=== PATIENT | male | born 2005 | race Caucasian/White ===

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

== ENCOUNTER 2025-11-09 18:35 | Observation (INO) ==
[2025-11-09] MEDS: SODIUM CHLORIDE 0.9% 1,000 ML IV ONE ×2 (18:57→22:59)
[2025-11-09 19:08] LABS: Hematocrit (blood only) 45.8 % (42.0-52.0); Hemoglobin 16.6 g/dL (14.0-18.0); Immature Granulocytes # (auto) 0.03 K/uL (0.01-0.20); Immature Granulocytes % (auto) 0.4 %; Mean Corpuscular Hemoglobin 30.3 pg (25.0-34.0); Mean Corpuscular Volume 83.6 fL (80.0-100.0); Platelet Count 204 K/uL (130-400); RDW Standard Deviation 40.0 fL (36.4-46.3); Red Blood Count 5.48 M/uL (4.70-6.10); White Blood Count 8.28 K/ul (4.8-10.8)
[2025-11-09 19:25] LABS: Alanine Aminotransferase 23.0 U/L (7-52); Albumin Globulin Ratio 1.1 (0.9-2); Albumin Level 4.8 gm/dl (3.4-5.0); Alkaline Phosphatase 78.0 U/L (34-104); Anion Gap 11.0 (3-11); Bilirubin,Total 0.9 mg/dl (0.2-1.0); Blood Urea Nitrogen 17.0 mg/dl (6-23); Calcium 9.8 mg/dl (8.6-10.3); Carbon Dioxide 23.0 mmol/L (21-32); Chloride 101.0 mmol/L (98-107); Creatinine Clr Calc Pharmacy 149.1 ml/min; Globulin 4.3 gm/dl (2.5-4.0); Glucose 91.0 mg/dl (70-99(Fasting)); Potassium 3.8 mmol/L (3.5-5.1); Sodium 135.0 mmol/L (136-145); Total Protein 9.1 gm/dl (6.0-8.3)
--- NOTE | 2025-11-09 20:17 | Emergency Department Note ---
Impression & Plan SOB (shortness of breath), Influenza A, Tachycardia ED Provider Note CHIEF COMPLAINT: Shortness of breath, dehydration HISTORY OF PRESENTING ILLNESS: This 20-year-old male patient presents to the emergency department with his sister for evaluation of shortness of breath, wheezing, and dehydration. The patient was seen in the ER and tested positive for influenza A earlier this morning. However, he states that his breathing has gotten worse and he is unable to stay hydrated. The patient has a history of asthma and has required admission in the past with illness. The patient states that he has been using his Pulmicort and albuterol without improvement of his symptoms at home. He did take Tylenol 4 hours ago, but still feels very sweaty. The patient denies any chest pain or abdominal pain, but does have nausea along with the shortness of breath. He has not been able to eat or drink much of anything today because of the nausea. He denies any fever currently, but feels like he has sweats and chills. REVIEW OF SYSTEMS: See HPI for pertinent positives and pertinent negatives. ALLERGIES: Bactrim MEDICATIONS: Pulmicort, albuterol PAST MEDICAL HISTORY: Asthma PHYSICAL EXAM: Vital Signs: Vitals are noted on the nurse's note and reviewed by myself. GENERAL: The patient appears ill, but nontoxic. SKIN: Capillary reflex less than 2 seconds. HEAD: Normocephalic, atraumatic. EYES: Pupils equal round and reactive to light and accommodation. Conjunctivae without injection, sclerae without icterus. Extraocular movements intact. NOSE: Patent, turbinates inflamed with no discharge. No sinus tenderness. MOUTH: Mucous membranes mildly dry. Airway patent, uvula midline. Pharynx is not erythematous and not edematous without exudate. Pharynx without postnasal drip. No evidence for peritonsillar abscess. NECK: Supple without nuchal rigidity. Mild anterior cervical lymphadenopathy. HEART: Tachycardic without murmurs gallops or rubs. LUNGS: Decreased air exchange bilaterally with scattered wheezes, but no obvious rales or rhonchi. The patient does have accessory muscle use, but no retractions. ABDOMEN: Positive bowel sounds x 4. Normal tympanic percussion. Soft, nontender to palpation. No masses or hepatosplenomegaly. No guarding, rigidity, or rebound tenderness. No CVA tenderness. No focal RLQ or LLQ tenderness. NEURO: Patient was alert and oriented. DIFFERENTIAL DIAGNOSIS: Differential diagnosis includes URI, bronchitis, pneumonia, pneumothorax, hemothorax, PE, ND, pericarditis, myocarditis, airway obstruction, aspiration, pulmonary edema, asthma, COPD, CHF, pleurisy, metabolic acidosis, anemia, neoplasm, or others. ED COURSE AND MEDICAL DECISION MAKING: HISTORY FROM INDEPENDENT HISTORIAN: Additional history obtained from the patient's sister MEDICATIONS GIVEN: 2 L normal saline solution bolus. Solu-Medrol 125 mg IV. Magnesium 1 g IV. DuoNeb treatment. Toradol 10 mg IV and Tylenol 1000 mg IV. An hour-long DuoNeb was ordered, but the patient was unable to tolerate the entire treatment due to worsening tachycardia. Zofran 4 mg IV and Pepcid 20 mg IV. Tamiflu 75 mg p.o. MONITOR: Continuous equipment monitor phototypesetting: Order was placed for continuous equipment monitor phototypesetting. Patient was placed on the equipment monitor phototypesetting and continuous pulse ox. Patient was noted to be in sinus tachycardia at an initial rate of 120 bpm per my interpretation. EKG: EKG was interpreted by myself as sinus tachycardia at 125 bpm with no acute ST or T wave changes. INTERPRETATION OF LABS: I interpreted the labs with full lab results as below in the lab section of this note. Laboratory results pertinent to the emergent complaint are discussed in the MDM section below. The patient was advised to follow up with their PCP and/or specialist(s) for further outpatient monitoring and management of any abnormal results. INTERPRETATION OF IMAGING: Imaging studies were interpreted by myself and read by radiology as per the imaging section of this note. The patient was advised to follow up with their PCP and/or specialist(s) for further outpatient management of any non-emergent abnormal findings. Chest x-ray negative for acute cardiopulmonary etiology. CTA of the chest with IV contrast shows no definite PE or pneumonia. There is nonspecific hilar and subcarinal lymphadenopathy. Moderate artifact limits evaluation. CHRONIC MEDICAL/SOCIAL CONDITIONS AFFECTING CARE: Asthma CONSULTATIONS: On-call hospitalist MDM SUMMARY: The patient was seen during a time of extreme volume and extreme acuity. Nursing triage protocols were initiated with IV lock, labs, and/or imaging studies conducted by protocol in the triage area. The patient was initially evaluated in a sub-waiting room and then re-evaluated once they were taken back to an exam room. The patient has been sick for the past 2 days and was diagnosed with influenza A this morning. The patient was given prednisone 60 mg p.o. as well as a DuoNeb treatment prior to discharge. The patient has been using his Pulmicort and albuterol at home as well. However, he continues with worsening shortness of breath and trouble breathing. The patient states that he has a history of asthma that can result in significant exacerbation with illness and previous hospitalizations. On exam the patient was tachycardic with pulse ox in the low 90s. He did have decreased air movement bilaterally with wheezing. The patient was given a DuoNeb treatment with some improvement of his lung sounds, but persisting symptoms. The patient was also given a total of 2 L normal saline solution bolus, Solu-Medrol 125 mg IV, and magnesium 1 g IV. The patient was ordered an hour-long DuoNeb treatment, but the patient was unable to tolerate the entire treatment as his heart rate went into the 150s and 160s. The patient was given Toradol 10 mg IV and Tylenol 1000 mg IV for his discomfort and bodyaches. The patient was given IV Zofran and IV Pepcid for his nausea. The patient was also given a dose of oral Tamiflu. White blood cell count normal at 8.28. Hemoglobin normal at 16.6. Platelet count normal 204. VBG with a pCO2 of 31, but otherwise normal. Sodium 135, but otherwise without concerning abnormalities. Magnesium normal. High-sensitivity troponin normal. Chest x-ray negative for acute cardiopulmonary etiology. Due to the patient's persisting tachycardia and shortness of breath, CTA of the chest was obtained. CTA of the chest with IV contrast shows no definite PE or pneumonia. There is nonspecific hilar and subcarinal lymphadenopathy. Moderate artifact limits evaluation. Despite the above treatment, the patient's pulse ox remained around 90 to 91% on room air and he remained tachycardic between 110 and 130's. The patient also continued feeling short of breath. The patient was placed on 2 L of oxygen by nasal cannula. The patient does not feel like he can manage his symptoms at home and states that his symptoms feel similar to when he has required admission in the past. I spoke with the on-call hospitalist who agreed to admit the patient for further evaluation and treatment. Please refer to their dictation for further details. The patient's care was transferred in stable condition. DIAGNOSIS: Shortness of breath Tachycardia Influenza A Past Med/Surg History Problem List (Updated 11/10/25 @ 00:28 by Jacklyn Gonzalez PA-C) Hyponatremia Tachycardia (Acute) SOB (shortness of breath) (Acute) Influenza A (Acute) E-cigarette or vaping product use associated lung injury (EVALI) (Acute) Adames's palsy (Acute) Medical History Hypoxia Dyspnea No significant medical problems Surgical History No pertinent past surgical history Family History Mother Diabetes Father Diabetes Social History Smoking Status: Current every day smoker Tobacco Type: Cigarettes and E-cigarettes / Vaping Second Hand Exposure: Yes; Do You Dip or Chew Tobacco: No; Hx Alcohol Use: No Hx Substance Use: No Preferred Language: Stateless Communication Ability: Effective Visual Impairment: No Limitations Hearing Ability: Normal Neurosurgical Nurse Required: No Beliefs That Will Affect Care: None marital status: Single Current Living Situation: Family Current Living Situation Comment: lives with dad, sees mom once in a while. Feels Safe at Home: Yes Childhood Exposure to Second-Hand Smoke: Yes (father smokes) Dental Care, Regularly: Yes Seatbelt Use: always Assistive Devices: None Allergies Allergies Allergy/AdvReac Type Severity Reaction Status Date / Time Sulfa (Sulfonamide Allergy Intermediate HIVES,SWELL Verified 11/10/25 00:26 Antibiotics) ING Home Meds Previous Rx's Medication Instructions Recorded albuterol sulfate 90 mcg/actuation 2 inh inhalation Q4H PRN shortness 11/09/25 aerosol inhaler of breath or wheezing #6.7 grams Results & Data (ED) Vital Signs Vital Signs - 24 hr 11/09/25 18:39 11/09/25 21:05 11/09/25 21:05 Temperature 37 C Temperature Source Oral Pulse Rate 139 H Pulse Rate [Right Finger] 125 H Pulse Rhythm [Right Finger] Regular Pulse Strength [Right Finger] Normal Respiratory Rate 22 16 Respiratory Effort / Characteristics Non-Labored Respiratory Depth Normal Respiratory Pattern Regular Blood Pressure 162/71 H Blood Pressure [Right Arm] 122/78 Blood Pressure Mean 101 Blood Pressure Mean [Right Arm] 92 Blood Pressure Position [Right Arm] Lying Pulse Oximetry 93 99 99 Oxygen Delivery Method Room Air Room Air Room Air Oxygen Flow Rate Sepsis Recent Fever Within 48 Hours No Sepsis New/Unexplained Change in Mental Status No Sepsis Action Taken by Nursing No Action Required Oxygen Flow Rate - Titration Pulse Oximetry Post Tiitration 11/09/25 21:37 11/09/25 22:58 11/09/25 23:04 Temperature Temperature Source Pulse Rate 119 H 151 H Pulse Rate [Right Finger] 138 H Pulse Rhythm [Right Finger] Regular Pulse Strength [Right Finger] Normal Respiratory Rate 13 Respiratory Effort / Characteristics Non-Labored Respiratory Depth Normal Respiratory Pattern Regular Blood Pressure Blood Pressure [Right Arm] 107/75 Blood Pressure Mean Blood Pressure Mean [Right Arm] 85 Blood Pressure Position [Right Arm] Lying Pulse Oximetry 93 Oxygen Delivery Method Room Air Oxygen Flow Rate Sepsis Recent Fever Within 48 Hours Sepsis New/Unexplained Change in Mental Status Sepsis Action Taken by Nursing Oxygen Flow Rate - Titration Pulse Oximetry Post Tiitration 11/10/25 00:05 11/10/25 00:08 Temperature Temperature Source Pulse Rate Pulse Rate [Right Finger] 114 H Pulse Rhythm [Right Finger] Regular Pulse Strength [Right Finger] Normal Respiratory Rate 21 Respiratory Effort / Characteristics Non-Labored Respiratory Depth Normal Respiratory Pattern Regular Blood Pressure Blood Pressure [Right Arm] 100/74 Blood Pressure Mean Blood Pressure Mean [Right Arm] 82 Blood Pressure Position [Right Arm] Lying Pulse Oximetry 90 90 Oxygen Delivery Method Room Air Room Air Nasal Cannula Oxygen Flow Rate 0 Sepsis Recent Fever Within 48 Hours Sepsis New/Unexplained Change in Mental Status Sepsis Action Taken by Nursing Oxygen Flow Rate - Titration 2 Pulse Oximetry Post Tiitration 94 Laboratory Data 11/09/25 18:55 11/09/25 18:55 Lab Results 11/09/25 11/09/25 Range/Units 18:55 21:55 WBC 8.28 (4.8-10.8) K/ul RBC 5.48 (4.70-6.10) M/uL Hgb 16.6 (14.0-18.0) g/dL Hct 45.8 (42.0-52.0) % MCV 83.6 (80.0-100.0) fL MCH 30.3 (25.0-34.0) pg MCHC 36.2 H (32.0-36.0) g/dL RDW Std Deviation 40.0 (36.4-46.3) fL RDW Coeff of Oz 13.1 (11.5-14.5) % Plt Count 204 (130-400) K/uL MPV 10.9 (9.4-12.4) fL Immature Gran % (Auto) 0.4 % Neut % (Auto) 82.5 % Lymph % (Auto) 5.7 % [place] % (Auto) 11.1 % Eos % (Auto) 0.1 % Baso % (Auto) 0.2 % Neut # (Auto) 6.83 H (1.40-6.50) K/uL Lymph # (Auto) 0.47 L (1.20-3.40) K/uL [place] # (Auto) 0.92 H (0.11-0.59) K/uL Eos # (Auto) 0.01 (0.00-0.50) K/uL Baso # (Auto) 0.02 (0.00-0.20) K/uL Immature Gran # (Auto) 0.03 (0.01-0.20) K/uL VBG pH 7.41 (7.36-7.41) VBG pCO2 31 L (38-50) mmHg VBG pO2 49 mmHg VBG HCO3 20 mmol/L VBG O2 Saturation 84.9 % VBG Base Excess -4.0 mEq/L Sodium 135 L (136-145) mmol/L Potassium 3.8 (3.5-5.1) mmol/L Chloride 101 (98-107) mmol/L Carbon Dioxide 23 (21-32) mmol/L Anion Gap 11 (3-11) BUN 17 (6-23) mg/dl Creatinine 0.91 (0.6-1.4) mg/dl Est Cr Clr Drug Dosing 149.1 ml/min eGFR 123.74 BUN/Creatinine Ratio 18.7 (10-20) Glucose 91 (70-99(Fasting)) mg/dl Calcium 9.8 (8.6-10.3) mg/dl Magnesium 1.9 (1.7-2.4) mg/dl Total Bilirubin 0.9 (0.2-1.0) mg/dl AST 29 (13-39) U/L ALT 23 (7-52) U/L Alkaline Phosphatase 78 (34-104) U/L Troponin I High Sens 6.2 (0-20) pg/ml Total Protein 9.1 H (6.0-8.3) gm/dl Albumin 4.8 (3.4-5.0) gm/dl Globulin 4.3 H (2.5-4.0) gm/dl Albumin/Globulin Ratio 1.1 (0.9-2) Administered Medications Discontinued Medications Albuterol (Albut/Ipratrop 3mg/0.5mg Neb 3 Ml Vial) 3 ml NEB NOW STA; Protocol Stop: 11/09/25 20:43 Last Admin: 11/09/25 20:55 Dose: 3 ml Documented By: DEVENDRA Albuterol (Albut/Ipratrop 3mg/0.5mg Neb 3 Ml Vial) 12 ml NEB ONE ONE; Protocol Stop: 11/09/25 21:44 Last Admin: 11/09/25 22:20 Dose: 12 ml Documented By: DEVENDRA Sodium Chloride (Nss) 1,000 mls @ 999 mls/hr IV .Q1H1M ONE Stop: 11/09/25 19:43 Last Infusion: 11/09/25 21:43 Dose: Infused Documented By: Admin: 11/09/25 18:57 Dose: 999 mls/hr Documented By: [facility] Magnesium Sulfate/Dextrose (Magnesium Sulfate / D5w) 1 gm in 100 mls @ 100 mls/hr IV NOW STA Stop: 11/09/25 21:41 Last Infusion: 11/09/25 21:56 Dose: Infused Documented By: Admin: 11/09/25 20:55 Dose: 100 mls/hr Documented By: DEVENDRA Sodium Chloride (Nss) 1,000 mls @ 999 mls/hr IV .Q1H1M ONE Stop: 11/09/25 23:55 Last Infusion: 11/10/25 00:02 Dose: Infused Documented By: Admin: 11/09/25 22:59 Dose: 999 mls/hr Documented By: DEVENDRA Acetaminophen (Ofirmev) 1,000 mg in 100 mls @ 400 mls/hr IV NOW STA Stop: 11/09/25 23:09 Last Infusion: 11/09/25 23:13 Dose: Infused Documented By: Admin: 11/09/25 22:58 Dose: 400 mls/hr Documented By: DEVENDRA Famotidine (Pepcid 20mg Iv Push) 20 mg in 5 mls @ 2.5 mls/min IV NOW STA Stop: 11/09/25 23:19 Last Admin: 11/09/25 23:30 Dose: 2.5 mls/min Documented By: DEVENDRA Ioversol (Optiray 320 125ml) 115 ml IV ONCE ONE Stop: 11/09/25 22:09 Last Admin: 11/09/25 22:08 Dose: 115 ml Documented By: TATA Ketorolac Tromethamine (Ketorolac Tromethamine 15 Mg/Ml Vial) 10 mg IV NOW ONE Stop: 11/09/25 20:43 Last Admin: 11/09/25 20:55 Dose: 10 mg Documented By: DEVENDRA Methylprednisolone (Methylprednisolone 125 Mg/2 Ml Vial) 125 mg IV NOW STA Stop: 11/09/25 20:43 Last Admin: 11/09/25 20:55 Dose: 125 mg Documented By: DEVENDRA Ondansetron HCl (Ondansetron Inj 2 Mg/Ml 2 Ml Vial) 4 mg IV NOW STA Stop: 11/09/25 23:19 Last Admin: 11/09/25 23:30 Dose: 4 mg Documented By: DEVENDRA Oseltamivir Phosphate (Oseltamivir Phosphate 75 Mg Cap) 75 mg PO NOW STA Stop: 11/09/25 23:19 Last Admin: 11/09/25 23:29 Dose: 75 mg Documented By: DEVENDRA Imaging Data Radiologist's Impression: Chest X-Ray 11/09/25 19:41 Exam(s): XR CXR 2 VIEWS EXAM: XR Chest, 2 Views CLINICAL HISTORY: Reason for exam: Sob. TECHNIQUE: Frontal and lateral views of the chest. COMPARISON: 11/09/2025 FINDINGS: Lungs: No consolidation. No overt edema. Pleural space: No pleural effusion. No pneumothorax. Heart: Unremarkable. No cardiomegaly. Bones/joints: Unremarkable. No fracture or malalignment. IMPRESSION: No acute cardiopulmonary abnormality. Electronically signed by: Erick Chisholm MD 11/09/25 20:33 PM Chest CTA 11/09/25 21:43 Exam(s): CTA CHEST IV Amt: 115 ml optiray 320 EXAM: CT Angiography Chest With Intravenous Contrast CLINICAL HISTORY: Reason for exam: PE. TECHNIQUE: Axial computed tomographic angiography images of the chest with intravenous contrast. CTDI is 26.51 mGy and DLP is 913.85 mGy-cm. Automated exposure control was utilized for the study. A dose lowering technique was utilized adhering to the principles of ALARA. 115 mL Optiray 320 given IV, with excellent pulmonary arterial enhancement, though moderate contrast streak and breathing motion limits detail. MIP reconstructed images were created and reviewed. COMPARISON: Chest x-ray, same day. FINDINGS: Pulmonary arteries: No definite pulmonary embolism, artifact limits evaluation. Aorta: No aneurysm. Lungs: Grossly clear. No consolidation. Pleural space: No significant effusion. No pneumothorax. Heart: No cardiomegaly. No significant pericardial effusion. No evidence of elevated right heart pressures. Bones/joints: No acute fracture. Soft tissues: Unremarkable. Lymph nodes: Mildly prominent bilateral hilar and subcarinal lymph nodes. IMPRESSION: 1. No definite pulmonary embolism, artifact limits evaluation. 2. Lungs are clear. 3. Nonspecific hilar and subcarinal lymphadenopathy. 4. Moderate artifact limits evaluation. Electronically signed by: Estella Leung M.D. 11/09/25 23:25 PM Discharge Plan Visit Data Chief Complaint: Respiratory Problems Stated Complaint: SOB, LUNG PAIN, CANT STAY HYDRATED ED Provider: Forest Alonso ED Midlevel Provider: Nikki Montoya Discharge Problem: SOB (shortness of breath), Influenza A, Tachycardia Patient Disposition: Admitted As Inpatient Condition: Fair Forms Stand Alone Forms: [employer]azer Prescriptions Prescriptions: No Action albuterol sulfate 90 mcg/actuation HFA aerosol inhaler 2 inh inhalation Q4H PRN (Reason: shortness of breath or wheezing) Qty: 6.7 0RF Referrals Referrals: PCP,NO [Primary Care Provider] -
--- NOTE | 2025-11-09 20:34 | XRay Report ---
Exam(s): XR CXR 2 VIEWS EXAM: XR Chest, 2 Views CLINICAL HISTORY: Reason for exam: Sob. TECHNIQUE: Frontal and lateral views of the chest. COMPARISON: 11/09/2025 FINDINGS: Lungs: No consolidation. No overt edema. Pleural space: No pleural effusion. No pneumothorax. Heart: Unremarkable. No cardiomegaly. Bones/joints: Unremarkable. No fracture or malalignment. IMPRESSION: No acute cardiopulmonary abnormality. Electronically signed by: Erick Chisholm MD 11/09/25 20:33 PM
[2025-11-09] MEDS: ALBUT/IPRATROP 3MG/0.5MG NEB 3 ML VIAL NEB STA (20:55)
[2025-11-09] MEDS: MAGNESIUM SULFATE / D5W 1 GM/100 ML BAG IV STA (20:55)
[2025-11-09] MEDS: KETOROLAC TROMETHAMINE 15 MG/ML VIAL IV ONE (20:55)
[2025-11-09 21:59] LABS: Base Excess VBG -4.0 mEq/L; HCO3 VBG 20 mmol/L; Oxygen Saturation VBG 84.9 %; PCO2 VBG 31 mmHg (38-50); PO2 VBG 49 mmHg; pH VBG 7.41 (7.36-7.41)
[2025-11-09 22:04] LABS: Magnesium 1.9 mg/dl (1.7-2.4)
[2025-11-09] MEDS: OPTIRAY 320 125ml IV ONE (22:08)
[2025-11-09] MEDS: ALBUT/IPRATROP 3MG/0.5MG NEB 3 ML VIAL NEB ONE (22:20)
[2025-11-09] MEDS: ACETAMINOPHEN 1,000 MG/100 ML VIAL IV STA (22:58)
--- NOTE | 2025-11-09 23:25 | CT Scan Report ---
Exam(s): CTA CHEST IV Amt: 115 ml optiray 320 EXAM: CT Angiography Chest With Intravenous Contrast CLINICAL HISTORY: Reason for exam: PE. TECHNIQUE: Axial computed tomographic angiography images of the chest with intravenous contrast. CTDI is 26.51 mGy and DLP is 913.85 mGy-cm. Automated exposure control was utilized for the study. A dose lowering technique was utilized adhering to the principles of ALARA. 115 mL Optiray 320 given IV, with excellent pulmonary arterial enhancement, though moderate contrast streak and breathing motion limits detail. MIP reconstructed images were created and reviewed. COMPARISON: Chest x-ray, same day. FINDINGS: Pulmonary arteries: No definite pulmonary embolism, artifact limits evaluation. Aorta: No aneurysm. Lungs: Grossly clear. No consolidation. Pleural space: No significant effusion. No pneumothorax. Heart: No cardiomegaly. No significant pericardial effusion. No evidence of elevated right heart pressures. Bones/joints: No acute fracture. Soft tissues: Unremarkable. Lymph nodes: Mildly prominent bilateral hilar and subcarinal lymph nodes. IMPRESSION: 1. No definite pulmonary embolism, artifact limits evaluation. 2. Lungs are clear. 3. Nonspecific hilar and subcarinal lymphadenopathy. 4. Moderate artifact limits evaluation. Electronically signed by: Estella Leung M.D. 11/09/25 23:25 PM
[2025-11-09] MEDS: OSELTAMIVIR PHOSPHATE 75 MG CAP PO STA (23:29)
[2025-11-09] MEDS: ONDANSETRON INJ 2 MG/ML 2 ML VIAL IV STA (23:30)
[2025-11-09] MEDS: FAMOTIDINE 20MG IV PUSH 20 MG/5 ML SYR IV STA (23:30)
--- NOTE | 2025-11-10 00:27 | History & Physical Report ---
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 His evaluation is overall stable with slight hyponatremia at 135. He continues to remain tachycardic with no evidence of PE or other source of infection. Will admit for further management influenza A and tachycardia. #Influenza A/Tachycardia SOB and wheezing of main concern. He has a history of excessive smoking - 2-3 packs of cigarettes per day, vapes daily, smokes marijuana multiple times per day daily, and has ~ 12 cigars per day. He has history of second hand smoke exposure. Did not receive influenza vaccine. Pt severity short of breath, conversational dyspnea. Admission for respiratory support, management of tachycardia. - CBC without leukocytosis; VBG pCO2 31; CMP Na 135 - BioFire positive influenza A - CXR no acute findings - Chest CTA no PE, lungs clear, nonspecific hilar and subcarinal lymphadenopathy - Droplet precautions - O2 prn - IS + FV - IVF LR @ 125 mL/hr - DuoNeb q4hr + prn wheezing/SOB - Acetaminophen prn fever/pain - Zofran prn N/V - Received Tamiflu in ED, continue Tamiflu 75mg BID - Nicotine patch ordered - Encouraged smoking cessation - pt understood and agreeable - would like to stop #Hyponatremia Decreased oral intake, in setting of recently dx influenza A. - Na 135, glucose 91 - BMP am - IVF as above - Promote oral intake Sister would like to be called with updates - Anne @ [phone] - pt is agreeable. Dispo: Obs, med/tele VTE Prophylaxis: SCDs This document was dictated utilizing [employer]. Please excuse any grammatical errors that may be secondary to use of this software. Admission and Anticipated Discharge Date Admission Date: 11/10/2025 History of Present Illness Chief Complaint: SOB, Wheezing Primary Care Provider: NO PCP 20-year-old male PMHx close Vincent, GAUDENCIO, and known diagnosis of influenza A presenting for shortness of breath and wheezing. Reports that he was seen in the ED earlier the morning of arrival for feeling that his breathing was "not good." Reports history of breathing abnormalities and asthma. States that he went home after being d/c from ED and continued to feel worse, reporting he could "not stay hydrated even though drinking." He had worsening SOB and CP that radiated across his chest, with some palpitations. He has felt feverish. He does not feel lightheaded or dizzy unless changing positions. Did not receive flu vaccine this year. He has an extensive smoking history, has been smoking since 12. He smokes 2-3 packs of cigarettes per day, 12 cigars per day, and smokes his vape and marijuana multiple time per day, every day. He also has been exposed to second- hand smoke all his life. Reports asthma, no daily or rescue medications for such. He is still SOB, but feeling that his breathing is not as labored as it was when he arrived. No known sick contacts. Denies abdominal pain, C/D, numbness/tingling, LUTS, syncope, or falls. ED evaluation revealed CBC without leukocytosis or leukopenia, stable H&H; VBG's pH 7.41, pCO2 31; CMP sodium 135, protein 8.1, globulin 4.3; CXR no acute findings; chest CTA no PE, lungs clear, nonspecific hilar and subcarinal lymphadenopathy; EKG sinus tachycardia with RAD at 125 bpm.; Provided with 2L NSS, Tamiflu 75 mg po, Zofran 4 mg IV, methylprednisolone 125 mg IV, mag sulfate 1 g, ketorolac 10 mg IV, famotidine 20 mg IV, albuterol nebulizer x 2, and acetaminophen 1 g IV in ED. Please see Dr. Hillman attestation for adjustments/additions to treatment plan. Allergies Allergy/AdvReac Type Severity Reaction Status Date / Time Sulfa (Sulfonamide Allergy Intermediate SHAD,ABRAHAMLL Verified 11/10/25 00:26 Antibiotics) ING Home Medications Medication Instructions Recorded Confirmed Type albuterol sulfate 90 mcg/actuation 2 inh inhalation Q4H PRN shortness 11/09/25 11/10/25 Rx aerosol inhaler of breath or wheezing #6.7 grams Past Med/Surg History Problem List Hyponatremia Tachycardia (Acute) SOB (shortness of breath) (Acute) Influenza A (Acute) E-cigarette or vaping product use associated lung injury (EVALI) (Acute) Adames's palsy (Acute) Medical History Hypoxia Dyspnea No significant medical problems Surgical History No pertinent past surgical history Family History Mother Diabetes Father Diabetes Social History Smoking Status: Current every day smoker Tobacco Type: Cigarettes, Cigars and E-cigarettes / Vaping Second Hand Exposure: Yes; Do You Dip or Chew Tobacco: No; Tobacco Cessation Education Requested by Patient: No Hx Alcohol Use: Yes Alcohol type: hard liquor Hx Substance Use: Yes Last Used Substance: Days (ago) Preferred Language: Nepalese Communication Ability: Effective Visual Impairment: No Limitations Hearing Ability: Normal Beading Sawyer Required: No Beliefs That Will Affect Care: None marital status: Single Current Living Situation: Alone Current Living Situation Comment: lives with dad, sees mom once in a while. Other Information That Helps Us Care for You: No Feels Safe at Home: Yes Safety Concerns: Feels Safe At This Time Childhood Exposure to Second-Hand Smoke: Yes (father smokes) Dental Care, Regularly: Yes Seatbelt Use: always Assistive Devices: None Review of Systems Review of Systems: All systems reviewed & are unremarkable except as noted in Subjective Physical Exam Physical Exam: General: No acute distress, appears ill Skin: Warm and dry, diaphoretic Head: Normocephalic, atraumatic Eyes: PERRL, conjunctivae clear, sclera non-icteric ENT: External ear and ear canal without swelling; nose atraumatic; poor dentition, tongue normal appearance, pharynx normal Neck: Supple, no LAD Cardio: Tachycardic, regular rhythm, no M/G/R, S1 and S2 normal Resp: No respiratory distress, diffuse wheezing throughout, no rales or rhonchi Abdomen: Soft, symmetric, nontender; No masses or hepatosplenomegaly; Bowel sounds normoactive MSK: No deformities; pulses palpable and equal; no edema. Neuro: Awake, alert; Sensation intact bilaterally; CN grossly intact Psych: Appropriate mood and affect; good judgement and insight. Sister in room at time of visit. Results & Data Results & Data Vital Signs (Past 12 Hours) Vital Signs Temp Pulse Pulse Resp BP BP Pulse Ox 11/10/25 00:08 90 11/10/25 00:05 114 H 21 100/74 90 11/09/25 23:04 138 H 13 107/75 93 11/09/25 22:58 151 H 11/09/25 21:37 119 H 11/09/25 21:05 99 11/09/25 21:05 125 H 16 122/78 99 11/09/25 18:39 37 C 139 H 22 162/71 H 93 O2 Del Method O2 Flow Rate 11/10/25 00:08 Room Air, Nasal Cannula 0 11/10/25 00:05 Room Air 11/09/25 23:04 Room Air 11/09/25 22:58 11/09/25 21:37 11/09/25 21:05 Room Air 11/09/25 21:05 Room Air 11/09/25 18:39 Room Air Laboratory Results 11/09/25 11/09/25 21:55 18:55 WBC 8.28 RBC 5.48 Hgb 16.6 Hct 45.8 MCV 83.6 MCH 30.3 MCHC 36.2 H RDW Std Deviation 40.0 RDW Coeff of Oz 13.1 Plt Count 204 MPV 10.9 Immature Gran % (Auto) 0.4 Neut % (Auto) 82.5 Lymph % (Auto) 5.7 [place] % (Auto) 11.1 Eos % (Auto) 0.1 Baso % (Auto) 0.2 Neut # (Auto) 6.83 H Lymph # (Auto) 0.47 L [place] # (Auto) 0.92 H Eos # (Auto) 0.01 Baso # (Auto) 0.02 Immature Gran # (Auto) 0.03 VBG pH 7.41 VBG pCO2 31 L VBG pO2 49 VBG HCO3 20 VBG O2 Saturation 84.9 VBG Base Excess -4.0 Sodium 135 L Potassium 3.8 Chloride 101 Carbon Dioxide 23 Anion Gap 11 BUN 17 Creatinine 0.91 Est Cr Clr Drug Dosing 149.1 eGFR 123.74 BUN/Creatinine Ratio 18.7 Glucose 91 Calcium 9.8 Magnesium 1.9 Total Bilirubin 0.9 AST 29 ALT 23 Alkaline Phosphatase 78 Troponin I High Sens 6.2 Total Protein 9.1 H Albumin 4.8 Globulin 4.3 H Albumin/Globulin Ratio 1.1 Diagnostic Findings Chest X-Ray 11/09/25 19:41 Exam(s): XR CXR 2 VIEWS EXAM: XR Chest, 2 Views CLINICAL HISTORY: Reason for exam: Sob. TECHNIQUE: Frontal and lateral views of the chest. COMPARISON: 11/09/2025 FINDINGS: Lungs: No consolidation. No overt edema. Pleural space: No pleural effusion. No pneumothorax. Heart: Unremarkable. No cardiomegaly. Bones/joints: Unremarkable. No fracture or malalignment. IMPRESSION: No acute cardiopulmonary abnormality. Electronically signed by: Erick Chisholm MD 11/09/25 20:33 PM Chest CTA 11/09/25 21:43 Exam(s): CTA CHEST IV Amt: 115 ml optiray 320 EXAM: CT Angiography Chest With Intravenous Contrast CLINICAL HISTORY: Reason for exam: PE. TECHNIQUE: Axial computed tomographic angiography images of the chest with intravenous contrast. CTDI is 26.51 mGy and DLP is 913.85 mGy-cm. Automated exposure control was utilized for the study. A dose lowering technique was utilized adhering to the principles of ALARA. 115 mL Optiray 320 given IV, with excellent pulmonary arterial enhancement, though moderate contrast streak and breathing motion limits detail. MIP reconstructed images were created and reviewed. COMPARISON: Chest x-ray, same day. FINDINGS: Pulmonary arteries: No definite pulmonary embolism, artifact limits evaluation. Aorta: No aneurysm. Lungs: Grossly clear. No consolidation. Pleural space: No significant effusion. No pneumothorax. Heart: No cardiomegaly. No significant pericardial effusion. No evidence of elevated right heart pressures. Bones/joints: No acute fracture. Soft tissues: Unremarkable. Lymph nodes: Mildly prominent bilateral hilar and subcarinal lymph nodes. IMPRESSION: 1. No definite pulmonary embolism, artifact limits evaluation. 2. Lungs are clear. 3. Nonspecific hilar and subcarinal lymphadenopathy. 4. Moderate artifact limits evaluation. Electronically signed by: Estella Leung M.D. 11/09/25 23:25 PM Medications Administered 2L NSS Tamiflu 75 mg po Zofran 4 mg IV Methylprednisolone 125 mg IV Maxipime 1 g IV Ketorolac 10 mg IV Famotidine 20 mg IV Albuterol nebulizer x 2 Acetaminophen 1 g IV ECG Additional Comments: Sinus tachycardia, RAD 125 bpm, MD 152, QRS 94, QT/QTc 310/447, PRT 76/29/75 Code Status & VTE Plan Code Status Full Supervising Physician Co-Signing Physician Notes Attending addendum: I have physically seen this patient, have supervised the GEORGES's activities, and agree with the H&P unless as otherwise noted. Assessment and Plan: The patient is a 20-year-old male past medical history of Adames's palsy, EVALI, tobacco abuse, and regular marijuana use. He presents to the emergency department with shortness of breath and wheezing. Evaluation in the emergency department included a positive influenza A test. COVID-19, influenza B and RSV were all negative. Chest x-ray showed no acute findings. CT angiography of chest PE protocol was negative for PE, but did show small areas of hilar and subcarinal lymphadenopathy. Influenza A/mild sinus tachycardia- Respiratory bio fire test positive for influenza A. Chest x-ray no acute findings CTA chest was negative for PE but did show nonspecific hilar and subcarinal lymphadenopathy. Droplet precautions Oxygen titration: The pulse ox 94-95% Incentive spirometry LR at 125 mL/h x 1 L Duonebs every 4 hours while awake and every 2 hours when necessary. Acetaminophen 650 mg by mouth every 6 hours as needed for mild pain or fever Zofran 4 mg IV every 6 hours as needed Tamiflu 75 mg p.o. twice daily x 5 days doses Nicotine patch Smoking cessation counseling Remaining orders and notations as noted PG Care Time/CCT Total # of Minutes Spent Total Time Spent with Patient: Total time spent is greater than 50% in coordination of care (as documented) at patient's floor/unit and/or counseling patient: Coding Level of Care Code 89070 INT INP/OBS CARE 2/55MIN Diagnoses Influenza A J10.1 Tachycardia R00.0 Hyponatremia E87.1
[2025-11-10] MEDS: ALBUT/IPRATROP 3MG/0.5MG NEB 3 ML VIAL NEB SCH (03:10)
[2025-11-10] MEDS ORDERED: ONDANSETRON INJ 2 MG/ML 2 ML VIAL IV PRN (03:52)
[2025-11-10] MEDS ORDERED: POLYETHYLENE (MIRALAX) 17 GM PACK PO PRN (03:52)
[2025-11-10] MEDS: LACTATED RINGER'S 1,000 ML IV SCH (04:24)
[2025-11-10] MEDS: NICOTINE 21 MG/24 HR TDSY TD STA (04:26)
[2025-11-10 06:53] LABS: Anion Gap 8.0 (3-11); Blood Urea Nitrogen 16.0 mg/dl (6-23); Calcium 9.0 mg/dl (8.6-10.3); Carbon Dioxide 23.0 mmol/L (21-32); Chloride 107.0 mmol/L (98-107); Creatinine Clr Calc Pharmacy 150.8 ml/min; Glucose 139.0 mg/dl (70-99(Fasting)); Potassium 4.6 mmol/L (3.5-5.1); Sodium 138.0 mmol/L (136-145)
[2025-11-10] MEDS: OSELTAMIVIR PHOSPHATE 75 MG CAP PO SCH (07:34)
[2025-11-10] MEDS ORDERED: REMOVE NICODERM PATCH SCH (08:59)
[2025-11-10] MEDS ORDERED: INFLUENZA VACC TS2025-26(6m+)/PF (IIV3) 0.5mL Syr IM ONE (09:00)
--- NOTE | 2025-11-10 09:01 | Electrocardiogram Report ---
Test Reason : Blood Pressure : */* mmHG Vent. Rate : 125 BPM Atrial Rate : 125 BPM P-R Int : 152 ms QRS Dur : 94 ms QT Int : 310 ms P-R-T Axes : 76 269 75 degrees QTcB Int : 447 ms Sinus tachycardia Right superior axis deviation Abnormal ECG When compared with ECG of 31-May-2025 16:04, Vent. rate has increased by 48 bpm Questionable change in QRS axis Confirmed by En Arroyo ([id number]) on 11/10/2025 9:01:15 AM Referred By: REFERRED SELF Confirmed By: En Arroyo
[2025-11-10] MEDS: NICOTINE 21 MG/24 HR TDSY TD SCH (09:58)
[2025-11-10] MEDS: REMOVE NICODERM PATCH SCH (09:58)
[2025-11-10] MEDS: ONDANSETRON INJ 2 MG/ML 2 ML VIAL IV PRN (11:21)
--- NOTE | 2025-11-10 17:15 | Hospitalist Progress Note ---
Date of Service November 10, 2025 Assessment & Plan (1) Influenza A: (2) Tachycardia: (3) Hyponatremia: Plan 20-year-old male PMHx close VincentGAUDENCIO, and known diagnosis of influenza A presenting for shortness of breath and wheezing. His evaluation is overall stable with slight hyponatremia at 135. He continues to remain tachycardic with no evidence of PE or other source of infection. Will admit for further management influenza A and tachycardia. #Influenza A/Tachycardia SOB and wheezing of main concern. He has a history of excessive smoking - 2-3 packs of cigarettes per day, vapes daily, smokes marijuana multiple times per day daily, and has ~ 12 cigars per day. He has history of second hand smoke exposure. Did not receive influenza vaccine. Pt severity short of breath, conversational dyspnea. Admission for respiratory support, management of tachycardia. BioFire positive influenza A CXR no acute findings Chest CTA no PE, nonspecific hilar and subcarinal lymphadenopathy Droplet precautions O2 prn IS + FV IVF LR @ 125 mL/hr DuoNeb q4hr + prn wheezing/SOB Acetaminophen prn fever/pain Zofran prn N/V Tamiflu 75mg BID Nicotine patch Encouraged smoking cessation #Hyponatremia Decreased oral intake, in setting of recently dx influenza A Na 138 Sister would like to be called with updates - Anne @ [phone] - pt is agreeable. Dispo: Obs, med/tele, possible d/c tomorrow VTE Prophylaxis: SCDs Admission and Anticipated Discharge Date Admission Date: November 10, 2025 Subjective Coughing a lot this am. Feels slightly SOB. States he hasn't seen a family doctor in quite some time and has never had formal PFT testing. Appetite has been fair. Feels weak and tired. No fever. Review of Systems Review of Systems: All systems reviewed & are unremarkable except as noted in Subjective Physical Exam Physical Exam: GENERAL APPEARANCE: A&O. Sitting up in bed. NAD. SKIN: Normal color without rashes or lesions. Normal turgor. HEENT: Head AT/NC. Buccal mucosa is moist and pink. NECK: No jugular venous distention. No thyroid enlargement. There is no lymphadenopathy. HEART: RRR without m/g/r LUNGS: Normal inspiratory effort. Mild expiratory wheezing posteriorly in all herrera. ABDOMEN: No guarding or rigidity. Normoactive BS in all four quadrants. Abdomen soft and NT. MSK: No bony gross/deformities throughout. ROM intact. EXTREMITIES: No edema, No peripheral cyanosis. Neuro: CN 2-12 grossly intact. No focal neuro deficits PSYCHIATRIC: Normal affect. Eye contact is good. Speech is normal rate and content. Responses are appropriate. Results & Data Results & Data Vital Signs (Past 12 Hours) Vital Signs Temp Pulse Pulse Resp BP Pulse Ox O2 Del Method 11/10/25 15:15 36.9 C 102 H 18 132/80 96 Room Air 11/10/25 14:17 100 H 18 97 Nasal Cannula 11/10/25 11:32 36.7 C 92 H 18 131/78 95 Room Air 11/10/25 10:27 94 H 16 98 Nasal Cannula 11/10/25 09:00 98 H 11/10/25 09:00 Nasal Cannula 11/10/25 07:31 36.5 C 83 18 124/75 98 Nasal Cannula 11/10/25 06:54 104 H 16 96 Nasal Cannula O2 Flow Rate 11/10/25 15:15 11/10/25 14:17 2 11/10/25 11:32 11/10/25 10:27 1 11/10/25 09:00 11/10/25 09:00 2 11/10/25 07:31 1 11/10/25 06:54 0 Laboratory Results Labs reviewed: BMP PG Care Time/CCT Total # of Minutes Spent Total Time Spent with Patient: Total time spent is greater than 50% in coordination of care (as documented) at patient's floor/unit and/or counseling patient: Coding Level of Care Code 46343 SUB INP/OBS CARE 2/35MIN Diagnoses Influenza A J10.1 Tachycardia R00.0 Hyponatremia E87.1
[2025-11-11 10:29] LABS: Anion Gap 10.0 (3-11); Calcium 8.7 mg/dl (8.6-10.3); Carbon Dioxide 25.0 mmol/L (21-32); Chloride 101.0 mmol/L (98-107); Potassium 4.0 mmol/L (3.5-5.1); Sodium 136.0 mmol/L (136-145)
[2025-11-11 10:34] LABS: Blood Urea Nitrogen 12.0 mg/dl (6-23); Creatinine Clr Calc Pharmacy 157.8 ml/min; Glucose 87.0 mg/dl (70-99(Fasting))
[2025-11-11 10:35] LABS: Hematocrit (blood only) 42.9 % (42.0-52.0); Hemoglobin 14.7 g/dL (14.0-18.0); Immature Granulocytes # (auto) 0.01 K/uL (0.01-0.20); Immature Granulocytes % (auto) 0.2 %; Mean Corpuscular Hemoglobin 29.2 pg (25.0-34.0); Mean Corpuscular Volume 85.3 fL (80.0-100.0); Platelet Count 169 K/uL (130-400); RDW Standard Deviation 42.2 fL (36.4-46.3); Red Blood Count 5.03 M/uL (4.70-6.10); White Blood Count 4.35 K/ul (4.8-10.8)
[2025-11-11] MEDS: ACETAMINOPHEN 325 MG TAB PO PRN (11:44)
[2025-11-11] MEDS: LORazepam 0.5 MG TAB PO STA (13:49)
[2025-11-11] MEDS: ALUMINUM/MAGNESIUM SUSP 30 ML UDC PO PRN (13:49)
--- NOTE | 2025-11-11 14:29 | Hospitalist Progress Note ---
Date of Service November 11, 2025 Assessment & Plan (1) Influenza A: (2) Tachycardia: (3) Hyponatremia: Plan 20-year-old male PMHx close GAUDENCIO Vincent, and known diagnosis of influenza A presenting for shortness of breath and wheezing. His evaluation is overall stable with slight hyponatremia at 135. He continues to remain tachycardic with no evidence of PE or other source of infection. Will admit for further management influenza A and tachycardia. #Influenza A/Tachycardia SOB and wheezing of main concern. He has a history of excessive smoking - 2-3 packs of cigarettes per day, vapes daily, smokes marijuana multiple times per day daily, and has ~ 12 cigars per day. He has history of second hand smoke exposure. Did not receive influenza vaccine. Pt severity short of breath, conversational dyspnea. Admission for respiratory support, management of tachycardia. BioFire positive influenza A CXR no acute findings Chest CTA no PE, nonspecific hilar and subcarinal lymphadenopathy Droplet precautions O2 prn IS + FV IVF d/c'ed, oral intake adequate DuoNeb q4hr + prn wheezing/SOB Acetaminophen prn fever/pain Zofran prn N/V Tamiflu 75mg BID Nicotine patch Encouraged smoking cessation 12 lead EKG done by nursing as he verbalized chest discomfort with coughing and on inspiration-->ST 125BPM, right axis deviation correlates with EKG 05/31/25 with right axis deviation (no new changes) ativan 0.5mg po X1 for anxiety, add hydroxyzine prn add on procal, CRP to am labs repeat CXR in am, chemical pneumonitis? (vaping, MJ use daily) Sister would like to be called with david - Anne @ [phone] Dispo: Observation med/tele, cont to monitor progress, using nasal cannula in setting of verbalizing comfort with application, RA saturations have been in low 90s VTE Prophylaxis: SCDs Admission and Anticipated Discharge Date Admission Date: November 10, 2025 Subjective Patient reports he is having inspiratory chest pain. Less SOB. Continues to have forceful coughing fits that produce chest discomfort. Reported to nursing he was having increasing anxiety and normally uses marijuana at home to medicate his anxiety. 12 lead EKG done as patient had verbalized he was having more difficulty breathing. Maintaining SPO2 in mid 90s on 1.5LPM of nasal cannula. Chest pain only provoked with severe coughing and on inspiration. Appetite has been fair-attempting to adequately hydrate. Overall just does not feel well. No fever. Duonebs are helping relieve SOB. Reports he is overwhelmed as he does not have health insurance. Never finished high school. Looking to obtain more secure employment. States his marijuana use is a problem. At baseline, he frequently has wheezing at home. More so at night when he lies down. Has not seen a family doctor in quite some time. Tele: ST low 100s/observed personally with rate as high as 120-130. Review of Systems Review of Systems: All systems reviewed & are unremarkable except as noted in Subjective Physical Exam Physical Exam: GENERAL APPEARANCE: A&O. Sitting up in bed. NAD. SKIN: Normal color without rashes or lesions. Normal turgor. HEENT: Head AT/NC. Buccal mucosa is moist and pink. HEART: RRR without m/g/r. LUNGS: Normal inspiratory effort-no tachypnea or intercostal retracting. Mild expiratory wheezing posteriorly in all herrera. ABDOMEN: No guarding or rigidity. Normoactive BS in all four quadrants. Abdomen soft and NT. MSK: No bony gross/deformities throughout. ROM intact. EXTREMITIES: No edema, No peripheral cyanosis. Neuro: CN 2-12 grossly intact. No focal neuro deficits PSYCHIATRIC: Normal affect. Eye contact is good. Speech is normal rate and content. Responses are appropriate. Tearful at times. Results & Data Results & Data Vital Signs (Past 12 Hours) Vital Signs Temp Pulse Pulse Resp BP Pulse Ox O2 Del Method 11/11/25 11:10 128 H 22 93 Room Air 11/11/25 11:03 37.7 C H 128 H 24 147/92 H 91 Room Air 11/11/25 08:00 92 H 11/11/25 07:30 37.4 C 118 H 21 146/80 H 93 Room Air 11/11/25 07:25 121 H 16 97 Room Air 11/11/25 03:14 37.0 C 95 H 18 133/78 96 Nasal Cannula O2 Flow Rate 11/11/25 11:10 11/11/25 11:03 11/11/25 08:00 11/11/25 07:30 11/11/25 07:25 11/11/25 03:14 3 Laboratory Results Labs reviewed: CBC, BMP PG Care Time/CCT Total # of Minutes Spent Total Time Spent with Patient: Total time spent is greater than 50% in coordination of care (as documented) at patient's floor/unit and/or counseling patient: Coding Level of Care Code 85732 SUB INP/OBS CARE 3/50MIN Diagnoses Influenza A J10.1 Tachycardia R00.0 Hyponatremia E87.1
[2025-11-12 06:49] LABS: Hematocrit (blood only) 43.4 % (42.0-52.0); Hemoglobin 15.2 g/dL (14.0-18.0); Immature Granulocytes # (auto) 0.01 K/uL (0.01-0.20); Immature Granulocytes % (auto) 0.3 %; Mean Corpuscular Hemoglobin 29.9 pg (25.0-34.0); Mean Corpuscular Volume 85.3 fL (80.0-100.0); Platelet Count 167 K/uL (130-400); RDW Standard Deviation 40.7 fL (36.4-46.3); Red Blood Count 5.09 M/uL (4.70-6.10); White Blood Count 3.63 K/ul (4.8-10.8)
[2025-11-12 07:27] LABS: Anion Gap 10.0 (3-11); Blood Urea Nitrogen 12.0 mg/dl (6-23); Calcium 9.0 mg/dl (8.6-10.3); Carbon Dioxide 27.0 mmol/L (21-32); Chloride 99.0 mmol/L (98-107); Creatinine Clr Calc Pharmacy 171.6 ml/min; Glucose 83.0 mg/dl (70-99(Fasting)); Potassium 3.7 mmol/L (3.5-5.1); Sodium 136.0 mmol/L (136-145)
--- NOTE | 2025-11-12 08:56 | Hospitalist Progress Note ---
Date of Service November 12, 2025 Assessment & Plan (1) Influenza A: (2) Tachycardia: (3) Hyponatremia: Plan 20-year-old male PMHx close GAUDENCIO Vincent, and known diagnosis of influenza A presenting for shortness of breath and wheezing. His evaluation is overall stable with slight hyponatremia at 135. He continues to remain tachycardic with no evidence of PE or other source of infection. Will admit for further management influenza A and tachycardia. #Influenza A/Tachycardia SOB and wheezing of main concern. He has a history of excessive smoking - 2-3 packs of cigarettes per day, vapes daily, smokes marijuana multiple times per day daily, and has ~ 12 cigars per day. He has history of second hand smoke exposure. Did not receive influenza vaccine. Pt severity short of breath, conversational dyspnea. Admission for respiratory support, management of tachycardia. BioFire positive influenza A CXR no acute findings Chest CTA no PE, nonspecific hilar and subcarinal lymphadenopathy Droplet precautions O2 prn IS + FV IVF d/c'ed, oral intake adequate DuoNeb q4hr + prn wheezing/SOB Acetaminophen prn fever/pain Zofran prn N/V Tamiflu 75mg BID Nicotine patch Encouraged smoking cessation 12 lead EKG done by nursing as he verbalized chest discomfort with coughing and on inspiration-->ST 125BPM, right axis deviation correlates with EKG 05/31/25 with right axis deviation (no new changes) ativan 0.5mg po X1 for anxiety, add hydroxyzine prn add on procal, CRP to am labs repeat CXR in am, chemical pneumonitis? (vaping, MJ use daily) Sister would like to be called with david - Anne @ [phone] Dispo: Observation med/tele, cont to monitor progress, using nasal cannula in setting of verbalizing comfort with application, RA saturations have been in low 90s VTE Prophylaxis: SCDs Admission and Anticipated Discharge Date Admission Date: November 10, 2025 Review of Systems Review of Systems: All systems reviewed & are unremarkable except as noted in Subjective Physical Exam Physical Exam: GENERAL APPEARANCE: A&O. Sitting up in bed. NAD. SKIN: Normal color without rashes or lesions. Normal turgor. HEENT: Head AT/NC. Buccal mucosa is moist and pink. HEART: RRR without m/g/r. LUNGS: Normal inspiratory effort-no tachypnea or intercostal retracting. Mild expiratory wheezing posteriorly in all herrera. ABDOMEN: No guarding or rigidity. Normoactive BS in all four quadrants. Abdomen soft and NT. MSK: No bony gross/deformities throughout. ROM intact. EXTREMITIES: No edema, No peripheral cyanosis. Neuro: CN 2-12 grossly intact. No focal neuro deficits PSYCHIATRIC: Normal affect. Eye contact is good. Speech is normal rate and content. Responses are appropriate. Tearful at times. Results & Data Results & Data Vital Signs (Past 12 Hours) Vital Signs Temp Pulse Pulse Resp BP Pulse Ox O2 Del Method 11/12/25 07:23 37.1 C 103 H 20 113/68 91 Aerosol Mask 11/12/25 07:19 107 H 18 92 Room Air 11/12/25 03:16 37.0 C 102 H 21 144/81 H 95 Nasal Cannula 11/11/25 23:19 37.1 C 104 H 20 144/86 H 96 Oxymask 11/11/25 22:58 103 H 18 96 Oxymask 11/11/25 22:49 101 H O2 Flow Rate 11/12/25 07:23 11/12/25 07:19 11/12/25 03:16 2 11/11/25 23:19 2 11/11/25 22:58 2 11/11/25 22:49 PG Care Time/CCT Total # of Minutes Spent Total Time Spent with Patient: Total time spent is greater than 50% in coordination of care (as documented) at patient's floor/unit and/or counseling patient: Coding Diagnoses Influenza A J10.1 Tachycardia R00.0 Hyponatremia E87.1
--- NOTE | 2025-11-12 09:17 | XRay Report ---
HISTORY: CHF TECHNIQUE: PA and lateral views of the chest. COMPARISON: Chest radiograph dated 11/09/2025. FINDINGS: laboratory monitor leads overlie the chest. No focal lung consolidation. No pneumothorax or pleural effusion. Normal heart size. Left-sided aortic arch. Midline trachea. No acute osseous abnormality. The included upper abdomen is unremarkable. IMPRESSION: No acute cardiopulmonary findings. Electronically signed by Ben Kim 11-12-2025 09:17 AM
--- NOTE | 2025-11-12 14:26 | Hospitalist Progress Note ---
Date of Service November 12, 2025 Assessment & Plan (1) Influenza A: (2) Tachycardia: (3) Hyponatremia: Plan 20-year-old male PMHx close GAUDENCIO Vincent, and known diagnosis of influenza A presenting for shortness of breath and wheezing. His evaluation is overall stable with slight hyponatremia at 135. He continues to remain tachycardic with no evidence of PE or other source of infection. Will admit for further management influenza A and tachycardia. #Influenza A/Tachycardia SOB and wheezing of main concern. He has a history of excessive smoking - 2-3 packs of cigarettes per day, vapes daily, smokes marijuana multiple times per day daily, and has ~ 12 cigars per day. He has history of second hand smoke exposure. Did not receive influenza vaccine. Pt with shortness of breath, conversational dyspnea. Admission for respiratory support, management of tachycardia. BioFire positive influenza A CXR no acute findings Chest CTA no PE, nonspecific hilar and subcarinal lymphadenopathy Droplet precautions O2 prn IS + FV IVF d/c'ed, oral intake adequate DuoNeb q4hr + prn wheezing/SOB add Solumedrol 40mg IV BID Acetaminophen prn fever/pain Zofran prn N/V Tamiflu 75mg BID (d/c 11/15) Nicotine patch Encouraged smoking cessation 12 lead EKG done by nursing as he verbalized chest discomfort with coughing and on inspiration-->ST 125BPM, right axis deviation correlates with EKG 05/31/25 with right axis deviation (no new changes) hydroxyzine prn anxiety (smokes marijuana daily at home for anxiety) procal neg, CRP 3.46 repeat CXR with no new acute findings Sister would like to be called with daivd - Anne @ [phone] Dispo: Admit med/tele, needs to discharge-->NO INSURANCE,need to establish with PCP, prescriptions for inhalers and outpatient PFTs VTE Prophylaxis: SCDs Admission and Anticipated Discharge Date Admission Date: November 12, 2025 Subjective Reports feeling slightly better today. Chest pain will with inspiration that is burning in nature. Worse when coughing. Wearing nasal cannula/Oxymask at 1LPM for comfort. Maintaining SPO2 in low to mid 90s. More c/o wheezing even with nebulizer treatments. No fever. Tele: ST low 100s/as high as 150s with Duoneb administration Review of Systems Review of Systems: All systems reviewed & are unremarkable except as noted in Subjective Physical Exam Physical Exam: GENERAL APPEARANCE: A&O. Sitting up in bed. NAD. SKIN: Normal color without rashes or lesions. Normal turgor. HEENT: Head AT/NC. Buccal mucosa is moist and pink. HEART: RRR without m/g/r. LUNGS: Normal inspiratory effort-no tachypnea or intercostal retracting. Pronounced exp wheezing scattered in all lung herrera. ABDOMEN: No guarding or rigidity. Normoactive BS in all four quadrants. Abdomen soft and NT. MSK: No bony gross/deformities throughout. ROM intact. EXTREMITIES: No edema, No peripheral cyanosis. Neuro: CN 2-12 grossly intact. No focal neuro deficits PSYCHIATRIC: Normal affect. Eye contact is good. Speech is normal rate and content. Responses are appropriate. Tearful at times. Results & Data Results & Data Vital Signs (Past 12 Hours) Vital Signs Temp Pulse Pulse Resp BP Pulse Ox O2 Del Method 11/12/25 10:40 37.1 C 109 H 20 126/76 90 Aerosol Mask 11/12/25 10:35 97 H 18 93 Oxymask 11/12/25 10:27 105 H 11/12/25 10:27 Nasal Cannula 11/12/25 07:23 37.1 C 103 H 20 113/68 91 Aerosol Mask 11/12/25 07:19 107 H 18 92 Room Air 11/12/25 03:16 37.0 C 102 H 21 144/81 H 95 Nasal Cannula O2 Flow Rate 11/12/25 10:40 11/12/25 10:35 1 11/12/25 10:27 11/12/25 10:27 1 11/12/25 07:23 11/12/25 07:19 11/12/25 03:16 2 Laboratory Results Labs reviewed: CBC,BMP, procal, CRP PG Care Time/CCT Total # of Minutes Spent Total Time Spent with Patient: Total time spent is greater than 50% in coordination of care (as documented) at patient's floor/unit and/or counseling patient: Coding Level of Care Code 01585 SUB INP/OBS CARE 2/35MIN Diagnoses Influenza A J10.1 Tachycardia R00.0 Hyponatremia E87.1
--- NOTE | 2025-11-13 05:44 | Electrocardiogram Report ---
Test Reason : Blood Pressure : */* mmHG Vent. Rate : 125 BPM Atrial Rate : 125 BPM P-R Int : 148 ms QRS Dur : 88 ms QT Int : 296 ms P-R-T Axes : 74 106 57 degrees QTcB Int : 427 ms Sinus tachycardia Rightward axis Borderline ECG When compared with ECG of 09-Nov-2025 23:33, Questionable change in QRS axis Confirmed by Roc Doe ([id number]) on 11/13/2025 5:44:17 AM Referred By: REFERRED SELF Confirmed By: Roc Doe
[2025-11-13 06:16] LABS: Hematocrit (blood only) 45.3 % (42.0-52.0); Hemoglobin 16.2 g/dL (14.0-18.0); Mean Corpuscular Hemoglobin 29.8 pg (25.0-34.0); Mean Corpuscular Volume 83.4 fL (80.0-100.0); Platelet Count 172 K/uL (130-400); RDW Standard Deviation 38.7 fL (36.4-46.3); Red Blood Count 5.43 M/uL (4.70-6.10); White Blood Count 2.84 K/ul (4.8-10.8)
[2025-11-13 06:42] LABS: Anion Gap 9 (3-11); Blood Urea Nitrogen 15 mg/dl (6-23); Calcium 9.3 mg/dl (8.6-10.3); Carbon Dioxide 27 mmol/L (21-32); Chloride 100 mmol/L (98-107); Creatinine Clr Calc Pharmacy 188.4 ml/min; Glucose 109 mg/dl (70-99(Fasting)); Sodium 136 mmol/L (136-145)
[2025-11-13 06:56] LABS: Immature Granulocytes # (auto) 0.00 K/uL (0.01-0.20); Immature Granulocytes % (auto) 0.0 %
[2025-11-13 07:40] VITALS: TEMP 97.7
--- NOTE | 2025-11-13 11:01 | Discharge Summary ---
Discharge Summary Date of Service November 13, 2025 Principal Dx & Hospital Course #1 = Principal Diagnosis (1) Influenza A: (2) Tachycardia: (3) Hyponatremia: Plan Plan 20-year-old male PMHx of Adames's palsy, EVALI, and known diagnosis of influenza A presenting for shortness of breath and wheezing. His evaluation is overall stable with slight hyponatremia at 135. He continues to remain tachycardic with no evidence of PE or other source of infection. Will admit for further management influenza A and tachycardia. #Influenza A | Tachycardia SOB and wheezing of main concern. He has a history of excessive smoking - 2-3 packs of cigarettes per day, vapes daily, smokes marijuana multiple times per day daily, and has ~ 12 cigars per day. He has history of second hand smoke exposure. Did not receive influenza vaccine. Pt with shortness of breath, conversational dyspnea. Admission for respiratory support, management of tachycardia. BioFire positive for influenza A on arrival CXR no acute findings Chest CTA no PE, nonspecific hilar and subcarinal lymphadenopathy Droplet precautions while inpatient IS, flutter valve DuoNeb q4hr + prn wheezing/SOB Patient was previously on Solu-Medrol 40 mg IV BID Patient has been on room air x 24 hours; not hypoxic; discontinued on 11/13 Pro-Antwon negative CRP 3.46 Repeat CXR on 11/12 with no new acute findings Continue Tamiflu 75mg BID on discharge through 11/15 Patient reports he currently has a nebulizer at home; will send additional Rx for ipratropiumalbuterol neb solution upon discharge #EVALI | tobacco cigarette abuse Nicotine patch while inpatient Patient expresses a desire to quit smoking upon discharge Continue to encourage smoking cessation and provide resources #Anxiety Hydroxyzine PRN for anxiety (smokes marijuana daily at home for anxiety) Procal neg, CRP 3.46 Date of discharge 11/13: Patient is mildly hypertensive at 143/85 at time of discharge; HR: 94 bpm; SpO2 95% on RA. Mr. Martinez reports he is feeling well this morning. He slept well last night, and reports that his breathing is "pretty good" today. He denies SOB at rest or dyspnea on exertion. He mainly has trouble breathing when he gets into coughing fits. He is still having a productive cough (white/yellowish sputum production). No pleuritic CP or hemoptysis. 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 He does report that he vapes and smokes tobacco cigarettes; 1.5 PPD. He expresses a desire to cut back/quit sm oking. Additionally, while he denies prior formal diagnosis of asthma or COPD, he was told in 2021 that he has asthma but never followed up with a general practitioner. Patient does not currently have a PCP. He does have an albuterol inhaler at home, which is given to him during his last ER visit. Patient reports that his sister will be able to pick him up from the hospital today. ROS: Patient endorses rib pain (which patient attributes to coughing), and intermittent productive cough (white/yellow sputum production). Patient denies fever, chills, night sweats, dizziness/lightheadedness with ambulation, headache, chest pain, SOB at rest, dyspnea on exertion, pleuritic CP, hemoptysis, abdominal pain, N/V/D, or changes in urinary bowel habits. Dispo: Discharge home Notes For Next Care Provider Patient hospitalized for influenza A; patient reportedly hypoxic while in the hospital. SpO2 is 95% on RA at time of discharge. However, suspect that patient's influenza was greatly exacerbated by tobacco cigarette use and vaping. While he declined Chantix at time of discharge (with prefer to try nicotine pa tches first), he expressed strong desire to quit smoking. Please continue to encourage cessation upon discharge. Admission HPI Per Admitting Provider 20-year-old male PMHx close GAUDENCIO Vincent, and known diagnosis of influenza A presenting for shortness of breath and wheezing. Reports that he was seen in the ED earlier the morning of arrival for feeling that his breathing was "not good." Reports history of breathing abnormalities and asthma. States that he went home after being d/c from ED and continued to feel worse, reporting he could "not stay hydrated even though drinking." He had worsening SOB and CP that radiated across his chest, with some palpitations. He has felt feverish. He does not feel lightheaded or dizzy unless changing positions. Did not receive flu vaccine this year. He has an extensive smoking history, has been smoking since 12. He smokes 2-3 packs of cigarettes per day, 12 cigars per day, and smokes his vape and marijuana multiple time per day, every day. He also has been exposed to second- hand smoke all his life. Reports asthma, no daily or rescue medications for such. He is still SOB, but feeling that his breathing is not as labored as it was when he arrived. No known sick contacts. Denies abdominal pain, C/D, numbness/tingling, LUTS, syncope, or falls. ED evaluation revealed CBC without leukocytosis or leukopenia, stable H&H; VBG's pH 7.41, pCO2 31; CMP sodium 135, protein 8.1, globulin 4.3; CXR no acute findings; chest CTA no PE, lungs clear, nonspecific hilar and subcarinal lymphadenopathy; EKG sinus tachycardia with RAD at 125 bpm.; Provided with 2L NSS, Tamiflu 75 mg po, Zofran 4 mg IV, methylprednisolone 125 mg IV, mag sulfate 1 g, ketorolac 10 mg IV, famotidine 20 mg IV, albuterol nebulizer x 2, and acetaminophen 1 g IV in ED. Admission Exam Per Admitting Provider General: No acute distress, appears ill Skin: Warm and dry, diaphoretic Head: Normocephalic, atraumatic Eyes: PERRL, conjunctivae clear, sclera non-icteric ENT: External ear and ear canal without swelling; nose atraumatic; poor dentition, tongue normal appearance, pharynx normal Neck: Supple, no LAD Cardio: Tachycardic, regular rhythm, no M/G/R, S1 and S2 normal Resp: No respiratory distress, diffuse wheezing throughout, no rales or rhonchi Abdomen: Soft, symmetric, nontender; No masses or hepatosplenomegaly; Bowel sounds normoactive MSK: No deformities; pulses palpable and equal; no edema. Neuro: Awake, alert; Sensation intact bilaterally; CN grossly intact Psych: Appropriate mood and affect; good judgement and insight. Sister in room at time of visit. Discharge Exam General: no acute distress; pleasant affect; non-toxic appearing; cooperative; SpO2 95% on RA HEENT: normocephalic, atraumatic; PERRLA; vision and hearing intact Neck: supple; trachea midline Skin: warm, dry without signs of tenting; no cyanosis; no rashes, bruising, lesions, or erythema noted CV: chest wall NTP; RRR; S1/S2 normal; no murmurs/rubs/gallops; pulses intact and symmetric at radial, DP, and PT Lungs: no acute respiratory distress; dry cough; symmetrical chest wall expansion; diminished breath sounds bilaterally across all lung herrera w/o adventitious sounds; no wheezing ABD: Soft, NTP; BS present; no rebound/guarding; no distention MSK: no tics or fasciculations; no edema noted in the LEs b/l, nonerythematous Neuro: A&Ox3; normal mood and affect; fluent speech; sensation intact and symmetric in the LEs b/l Assessed patient's oxygen saturation while in the room. SpO2 was 95% on RA while sitting at bedside with a good pulse form Patient was able to ambulate independently around the room, and maintain SpO2 without drop at 95% following ambulation. Discharge Plan Discharge Items Patient Disposition: Home - Self-Care Reason For Visit: flu a, tachycardia Discharge Diagnosis: Influenza A Condition on Discharge: Fair Activity: Resume your previous activity Non-emergency contact: Primary Care Provider and Senior Energy Consultant Call non-emergency contact if: you have any medication questions, your symptoms worsen, your pain is not controlled and your temperature is above 101.5 Follow-up/Referrals: PCP,NO [Primary Care Provider] - Diet: Regular Addtl Attending Provider Instructions: You were hospitalized at [facility] from 11/10 to 11/13 after developing difficulty breathing and wheezing. On arrival, he tested positive for influenza A. While it was expected that influenza was the primary cause of your symptoms, your symptoms may have also been exacerbated by tobacco cigarette smoking, as well as vaping. It is STRONGLY encouraged that you discontinue smoking and vaping upon discharge. You were treated with Tamiflu while in the hospital, as well as supplemental oxygen when needed. At time of discharge, your vitals are currently stable. Your oxygen saturation is currently 95% on room air, and you report no difficulty breathing or wheezing when walking around your room. For these reasons, we feel that you are safe to return home at this time. New prescriptions on discharge: Tamiflu 75 mg tablets to be taken twice daily through 11/15 Hydroxyzine 10 mg tablets to be taken at nighttime as needed for anxiety Guaifenesin ("Mucinex") 600 mg tablets to be taken twice daily as needed for cough Ipratropiumalbuterol nebulizer solution to be used every 4-6h as needed for shortness of breath or wheezing (Note: you reported that you currently have a nebulizer at home) Our case management assistant are currently working to set you up with a PCP. We recommend you establish care with your PCP in the next 7 to 10 days for a transitional care appointment. We also recommend that you obtain testing called PFTs ("pulmonary function testing") to assess your lung capacity and establish a diagnosis of asthma and/or COPD. Prior to discharge, we also discussed obtaining a home pulse oximeter. This is a small device that you can place on your finger to assess your oxygen saturat ion. We recommend you try to keep your oxygen saturation >90%. Pulse oximeter's can be obtained [id number] from pharmacies (such as [facility] or [facility]) or online via [employer]. While you are still recovering from the flu, we recommend that you drink plenty of fluids and get plenty of rest. Call medical provider if your fever is above 100.4 F. Maintain good hand hygiene by washing your hands often. If you develop any new or worsening symptoms, such as difficulty breathing, wheezing, blood in your cough, chest pain, fever, chills, or fainting spells, please return to the emergency department immediately. It was a pleasure taking care of you. Please reach out with any questions or concerns. Sincerely, The Hospital medicine team at [facility] Pending Studies at Discharge: No Stand-Alone Forms: My [facility], Smoking Cessation Medications and DC Order Prescriptions: New ipratropium-albuterol 0.5 mg-3 mg(2.5 mg base)/3 mL Solution For Nebulization 3 ml NEB Q4R PRN (Reason: shortness of breath or wheezing) Qty: 90 0RF Rx Instructions: Use nebulizing solution every 4 hours as needed for difficulty breathing or wheezing hydroxyzine HCl 10 mg Tablet 10 mg PO HS PRN (Reason: anxiety) Qty: 14 0RF Rx Instructions: Take 1 tablet at bedtime as needed for anxiety guaifenesin [Mucus Relief ER] 600 mg tablet extended release 12hr 600 mg PO BID PRN (Reason: cough) Qty: 10 0RF Rx Instructions: Take 1 tablet by mouth twice daily as needed for cough Continued albuterol sulfate 90 mcg/actuation HFA aerosol inhaler 2 inh inhalation Q4H PRN (Reason: shortness of breath or wheezing) Qty: 6.7 0RF Discharge Orders: Discharge Order (Routine); Ordered 11/13/25 Ordered By: Mitul Freitas/Other Patient Handouts: The Flu (Influenza), ED How to Quit Smoking Admission Data Admit Date/Time: 11/12/25 13:51 Attending Provider: Pedro Levin Admit Provider: Xavier Hillman Primary Care Provider: PCP,NO Other Interventions: Discharge Summary Assessment (RN) Last Done: 11/13/25 12:17 Hospital Stay Data Consultations 11/10/25 00:54 ED Decision to Admit Stat Diagnostic Imagining Performed 11/09/25 21:43 CT angio chest PE protocol Stat Discharge Instructions Given to Patient (Per Discharging Provider) You were hospitalized at [facility] from 11/10 to 11/13 after developing difficulty breathing and wheezing. On arrival, he tested positive for influenza A. While it was expected that influenza was the primary cause of your symptoms, your symptoms may have also been exacerbated by tobacco cigarette smoking, as well as vaping. It is STRONGLY encouraged that you discontinue smoking and vaping upon discharge. You were treated with Tamiflu while in the hospital, as well as supplemental oxygen when needed. At time of discharge, your vitals are currently stable. Your oxygen saturation is currently 95% on room air, and you report no difficulty breathing or wheezing when walking around your room. For these reasons, we feel that you are safe to return home at this time. New prescriptions on discharge: Tamiflu 75 mg tablets to be taken twice daily through 11/15 Hydroxyzine 10 mg tablets to be taken at nighttime as needed for anxiety Guaifenesin ("Mucinex") 600 mg tablets to be taken twice daily as needed for cough Ipratropiumalbuterol nebulizer solution to be used every 4-6h as needed for shortness of breath or wheezing (Note: you reported that you currently have a nebulizer at home) Our case management assistant are currently working to set you up with a PCP. We recommend you establish care with your PCP in the next 7 to 10 days for a transitional care appointment. We also recommend that you obtain testing called PFTs ("pulmonary function testing") to assess your lung capacity and establish a diagnosis of asthma and/or COPD. Prior to discharge, we also discussed obtaining a home pulse oximeter. This is a small device that you can place on your finger to assess your oxygen saturation. We recommend you try to keep your oxygen saturation >90%. Pulse oximeter's can be obtained [id number] from pharmacies (such as [employer] or [employer]) or online via [employer]. While you are still recovering from the flu, we recommend that you drink plenty of fluids and get plenty of rest. Call medical provider if your fever is above 100.4 F. Maintain good hand hygiene by washing your hands often. If you develop any new or worsening symptoms, such as difficulty breathing, wheezing, blood in your cough, chest pain, fever, chills, or fainting spells, please return to the emergency department immediately. It was a pleasure taking care of you. Please reach out with any questions or concerns. Sincerely, The Hospital medicine team at [facility] Supervising Physician Co-Signing Physician Notes I did not see or examine the patient. I verified all novoa points and agree with Mitul Lipscomb PA-C with the following exceptions and/or additions: None Total Time Total Time Spent Total Time Spent (In Minutes): 40 Coding Level of Care Code 20215 INP/OBS DISCH >30 MIN Diagnoses Influenza A J10.1 Tachycardia R00.0 Hyponatremia E87.1
[2025-11-13 11:30] VITALS: BP 143/85; PULSE 94; RESP 16; O2SAT 90
== END 2025-11-13 13:00 | disposition home or self-care (01) | DRG 194 ==
LOC: 2S 18:35 → ED 18:35 → SUATTDRO 11-10 00:51 → 2S 11-10 03:20 → SUATTDRO 11-12 13:51